=== PATIENT | female | born 1985 | race Caucasian/White ===

== ENCOUNTER 2020-06-05 13:54 | Inpatient (IN) | payer BC, MEDICAID ==
[~2020-06-05] VITALS: Ht 157.5 cm; Wt 101.0 kg
[2020-06-05] MEDS ORDERED: BETAMETHASONE 6 MG/ML, 5ML IM SCH (15:00)
[2020-06-05] MEDS: LACTATED RINGERS 1,000 ML IV PRN (15:00)
[2020-06-05] MEDS: MAGNESIUM SULF. PMX 20GM/500ML 500 ML IV SCH (15:00)
[2020-06-05] MEDS ORDERED: PREN1TAB10 PO (15:08)
[2020-06-05] MEDS ORDERED: INDOMETHACIN 50 MG CAPSULE ONE (17:12)
[2020-06-05] MEDS ORDERED: INDOMETHACIN 50 MG CAPSULE PO STA (17:13)
[2020-06-05] MEDS ORDERED: MAGNESIUM SULF. PMX 20GM/500ML 500 ML IV ONE ×2 (17:13→23:14)
[2020-06-05 17:26] LABS: ALBUMIN 2.7 g/dL (3.4-5.0); ANION GAP 10 mmol/L (5-15); CALCIUM 7.7 mg/dL (8.5-10.1); CHLORIDE 108 mmol/L (98-107)
[2020-06-05 17:30] LABS: ALANINE AMINOTRANSFERASE 16 U/L (12-78); ALKALINE PHOSPHATASE 108 U/L (45-117); BILIRUBIN,TOTAL 0.3 mg/dL (0.2-1.0); CREATININE 0.47 mg/dL (0.55-1.02); TOTAL PROTEIN 6.9 g/dL (6.4-8.2)
[2020-06-05] MEDS ORDERED: DOCUSATE 50 MG/5 ML, 10ML UDC PO PRN (17:30)
[2020-06-05 17:34] LABS: MEAN CORPUSCULAR HEMOGLOBIN 28.2 pg (27.0-34.8); MEAN CORPUSCULAR HGB CONC 32.7 g/dL (32.4-35.8); MEAN PLATELET VOLUME 10.3 fL (7.4-10.4); PLATELET COUNT 291 x10^3/uL (130-400); RED BLOOD COUNT 4.15 x10^6/uL (3.82-5.3); RED CELL DISTRIBUTION WIDTH 13.6 % (9.6-15.2)
[2020-06-05 17:43] LABS: MD YES
[2020-06-05] MEDS: AMPICILLIN 2 GM in SODIUM CHLORIDE 0.9% 100 ML IV SCH ×2 (17:52→23:13)
[2020-06-05 18:11] LABS: <PLATELET ESTIMATE> ADEQUATE; <PLT MORPHOLOGY> NORMAL PLT MORPH; <RBC MORPHOLOGY> NORMAL; BAND#(MANUAL) 0.39 x10^3/uL; BANDS%(MANUAL) 2 % (0-7); LYMPH#(MANUAL) 2.15 x10^3/uL (1-3.4); LYMPHS% (MANUAL) 11 % (22-44); MONOS% (MANUAL) 1 % (2-9); SEG#(MANUAL) 16.77 x10^3/uL (1.8-6.8); SEGS% (MANUAL) 86 % (42-75)
[2020-06-05] MEDS ORDERED: INSULIN LISPRO 100 UNITS/ML, PEN SQ-INSULIN ONE (18:54)
[2020-06-05] MEDS: INSULIN LISPRO 100 UNITS/ML, PEN SQ-INSULIN SCH (21:19)
[2020-06-05] MEDS ORDERED: ZOLPIDEM 5MG TABLET ONE (23:09)
[2020-06-05] MEDS: ZOLPIDEM 5MG TABLET PO PRN (23:12)
[2020-06-05] MEDS ORDERED: INSULIN NPH HUMAN 100 UNIT/ML, 3ML VIAL SQ-INSULIN ONE (23:30)
[2020-06-06] MEDS: MAGNESIUM SULF. PMX 20GM/500ML 500 ML IV SCH (00:30)
[2020-06-06] MEDS: LACTATED RINGERS 1,000 ML IV PRN (00:57)
[2020-06-06] MEDS ORDERED: CALCIUM CARBONATE 500 MG TAB.CHEW ONE ×2 (01:45→21:59)
[2020-06-06] MEDS: INSULIN LISPRO 100 UNITS/ML, PEN SQ-INSULIN SCH ×3 (07:00→16:00)
[2020-06-06] MEDS ORDERED: PRENATAL VIT/IRON/FA 1 EACH TABLET ONE (08:05)
[2020-06-06] MEDS ORDERED: metFORMIN 500 MG TABLET ONE ×2 (08:06→17:25)
[2020-06-06] MEDS: PRENATAL VIT/IRON/FA 1 EACH TABLET PO SCH (08:08)
[2020-06-06] MEDS: metFORMIN 500 MG TABLET PO SCH ×2 (08:08→17:27)
[2020-06-06] MEDS ORDERED: ACETAMINOPHEN 325 MG TABLET ONE (10:27)
[2020-06-06] MEDS ORDERED: ACETAMINOPHEN 325 MG TABLET PO ONE (10:30)
[2020-06-06] MEDS ORDERED: INDOMETHACIN 25 MG CAPSULE PO ONE (10:30)
[2020-06-06] MEDS ORDERED: BETAMETHASONE 6 MG/ML, 5ML IM ONE (11:03)
[2020-06-06 11:12] VITALS: BP 103/56
[2020-06-06 19:22] VITALS: BP 112/97
[2020-06-06] MEDS ORDERED: ZOLPIDEM 5MG TABLET ONE ×2 (21:59→22:04)
[2020-06-06] MEDS: CALCIUM CARBONATE 500 MG TAB.CHEW PO PRN (22:03)
[2020-06-06] MEDS: ZOLPIDEM 5MG TABLET PO PRN (22:03)
[2020-06-07] MEDS ORDERED: CALCIUM CARBONATE 500 MG TAB.CHEW ONE (06:34)
[2020-06-07] MEDS: CALCIUM CARBONATE 500 MG TAB.CHEW PO PRN (06:37)
[2020-06-07] MEDS: INSULIN LISPRO 100 UNITS/ML, PEN SQ-INSULIN SCH ×3 (07:00→16:00)
[2020-06-07] MEDS ORDERED: metFORMIN 500 MG TABLET ONE ×2 (07:30→17:49)
[2020-06-07] MEDS ORDERED: INDOMETHACIN 25 MG CAPSULE PO ONE (07:30)
[2020-06-07] MEDS ORDERED: PRENATAL VIT/IRON/FA 1 EACH TABLET ONE (07:30)
[2020-06-07] MEDS: metFORMIN 500 MG TABLET PO SCH ×2 (07:36→17:50)
[2020-06-07] MEDS: PRENATAL VIT/IRON/FA 1 EACH TABLET PO SCH (07:36)
[2020-06-07] MEDS ORDERED: MAGNESIUM SULFATE PMX 4GM/100M 100 ML ONE (08:07)
[2020-06-07] MEDS ORDERED: OXYcodone/APAP 5/325MG TABLET ONE (08:29)
[2020-06-07] MEDS ORDERED: FAMOTIDINE 20 MG TABLET ONE ×2 (08:30→22:40)
[2020-06-07] MEDS ORDERED: OXYcodone/APAP 5/325MG TABLET PO ONE (08:30)
[2020-06-07] MEDS ORDERED: MAGNESIUM SULF. PMX 20GM/500ML 500 ML IV SCH (08:30)
[2020-06-07] MEDS ORDERED: MAGNESIUM SULFATE PMX 4GM/100M 100 ML IVPB ONE (08:30)
[2020-06-07] MEDS: FAMOTIDINE 20 MG TABLET PO SCH ×2 (08:32→23:07)
[2020-06-07] MEDS: PROMETHAZINE 25MG TABLET PO PRN (08:55)
[2020-06-07] MEDS ORDERED: ONDANSETRON 2MG/ML, 2ML IVPush PRN (09:00)
[2020-06-07] MEDS ORDERED: PROMETHAZINE 25 MG/ML, 1ML IM ONE (09:00)
[2020-06-07] MEDS ORDERED: MAGNESIUM SULF. PMX 20GM/500ML 500 ML IV ONE (09:00)
[2020-06-07] MEDS: LACTATED RINGERS 1,000 ML IV PRN (11:30)
[2020-06-07] MEDS ORDERED: AMPICILLIN 2 GM in SODIUM CHLORIDE 0.9% 100 ML IV SCH (15:30)
[2020-06-07] MEDS ORDERED: AZITHROMYCIN 500 MG in SODIUM CHLORIDE 0.9% 250 ML IV SCH (15:30)
[2020-06-07 15:59] LABS: FERNING TEST FERNING NOT PRESENT (NEGATIVE)
[2020-06-07 20:16] VITALS: BP 132/68
[2020-06-07] MEDS ORDERED: ZOLPIDEM 5MG TABLET ONE ×2 (22:40→22:42)
[2020-06-07] MEDS: ZOLPIDEM 5MG TABLET PO PRN (23:06)
[2020-06-07] MEDS: SODIUM CHLORIDE FLUSH 3ML SYRINGE IVF SCH (23:07)
[2020-06-08] MEDS: INSULIN LISPRO 100 UNITS/ML, PEN SQ-INSULIN SCH ×3 (07:00→16:00)
[2020-06-08] MEDS ORDERED: metFORMIN 500 MG TABLET ONE ×2 (08:35→17:58)
[2020-06-08] MEDS ORDERED: PRENATAL VIT/IRON/FA 1 EACH TABLET ONE (08:35)
[2020-06-08] MEDS ORDERED: FAMOTIDINE 20 MG TABLET ONE ×2 (08:35→22:48)
[2020-06-08] MEDS: PRENATAL VIT/IRON/FA 1 EACH TABLET PO SCH (08:37)
[2020-06-08] MEDS: metFORMIN 500 MG TABLET PO SCH ×2 (08:37→17:59)
[2020-06-08] MEDS: FAMOTIDINE 20 MG TABLET PO SCH ×2 (08:37→23:16)
[2020-06-08] MEDS: PROMETHAZINE 25MG TABLET PO PRN ×2 (09:57→16:10)
[2020-06-08] MEDS: SODIUM CHLORIDE FLUSH 3ML SYRINGE IVF SCH ×2 (09:58→21:00)
[2020-06-08] MEDS ORDERED: MAGNESIUM SULFATE PMX 4GM/100M 100 ML ONE (15:49)
[2020-06-08] MEDS ORDERED: MAGNESIUM SULF. PMX 20GM/500ML 500 ML IV ONE (15:49)
[2020-06-08] MEDS ORDERED: MAGNESIUM SULF. PMX 20GM/500ML 500 ML IV SCH (16:00)
[2020-06-08] MEDS ORDERED: MAGNESIUM SULFATE PMX 4GM/100M 100 ML IVPB ONE (16:00)
[2020-06-08] MEDS: LACTATED RINGERS 1,000 ML IV SCH (18:00)
[2020-06-08 21:16] VITALS: BP 125/61
[2020-06-08] MEDS ORDERED: ZOLPIDEM 5MG TABLET ONE (22:48)
[2020-06-08] MEDS: MAGNESIUM OXIDE 400 MG TABLET PO SCH (23:16)
[2020-06-08] MEDS: ZOLPIDEM 5MG TABLET PO PRN (23:17)
[2020-06-09] MEDS ORDERED: OXYcodone/APAP 5/325MG TABLET ONE ×2 (00:42→23:17)
[2020-06-09] MEDS: OXYcodone/APAP 5/325MG TABLET PO PRN ×2 (00:44→23:19)
[2020-06-09] MEDS: LACTATED RINGERS 1,000 ML IV SCH ×2 (04:00→14:00)
[2020-06-09] MEDS ORDERED: MAGNESIUM OXIDE 400 MG TABLET ONE ×3 (06:20→23:07)
[2020-06-09] MEDS: MAGNESIUM OXIDE 400 MG TABLET PO SCH ×3 (06:23→23:19)
[2020-06-09] MEDS: INSULIN LISPRO 100 UNITS/ML, PEN SQ-INSULIN SCH ×3 (06:26→16:00)
[2020-06-09] MEDS ORDERED: metFORMIN 500 MG TABLET ONE ×2 (08:22→19:31)
[2020-06-09] MEDS ORDERED: FAMOTIDINE 20 MG TABLET ONE (08:24)
[2020-06-09] MEDS ORDERED: PRENATAL VIT/IRON/FA 1 EACH TABLET ONE (08:25)
[2020-06-09] MEDS: PRENATAL VIT/IRON/FA 1 EACH TABLET PO SCH (08:26)
[2020-06-09] MEDS: FAMOTIDINE 20 MG TABLET PO SCH ×2 (08:26→20:46)
[2020-06-09] MEDS: metFORMIN 500 MG TABLET PO SCH ×2 (08:26→19:33)
[2020-06-09 09:00] VITALS: BP 113/60
[2020-06-09] MEDS: SODIUM CHLORIDE FLUSH 3ML SYRINGE IVF SCH ×2 (09:30→19:33)
[2020-06-09] MEDS ORDERED: INDOMETHACIN 25 MG CAPSULE PO ONE (10:30)
[2020-06-09] MEDS ORDERED: ZOLPIDEM 5MG TABLET ONE (20:37)
[2020-06-09] MEDS: ZOLPIDEM 5MG TABLET PO PRN (23:19)
[2020-06-10] MEDS: LACTATED RINGERS 1,000 ML IV SCH
[2020-06-10] MEDS ORDERED: ONDANSETRON ODT 4 MG ONE (00:42)
[2020-06-10] MEDS ORDERED: ONDANSETRON ODT 4 MG PO ONE (01:00)
[2020-06-10] MEDS ORDERED: ONDANSETRON 4 MG TABLET PO ONE (01:00)
[2020-06-10] MEDS ORDERED: metFORMIN 500 MG TABLET ONE ×2 (07:50→18:03)
[2020-06-10] MEDS ORDERED: MAGNESIUM OXIDE 400 MG TABLET ONE ×3 (07:50→23:11)
[2020-06-10] MEDS: FAMOTIDINE 20 MG TABLET PO SCH ×2 (07:57→22:08)
[2020-06-10] MEDS: metFORMIN 500 MG TABLET PO SCH ×2 (07:57→18:00)
[2020-06-10] MEDS: MAGNESIUM OXIDE 400 MG TABLET PO SCH ×3 (07:58→23:12)
[2020-06-10] MEDS: SODIUM CHLORIDE FLUSH 3ML SYRINGE IVF SCH ×2 (08:07→17:00)
[2020-06-10] MEDS ORDERED: PRENATAL VIT/IRON/FA 1 EACH TABLET ONE (08:12)
[2020-06-10] MEDS: PRENATAL VIT/IRON/FA 1 EACH TABLET PO SCH (08:13)
[2020-06-10] MEDS: PROMETHAZINE 25MG TABLET PO PRN ×2 (14:02→18:57)
[2020-06-10] MEDS ORDERED: D5%-LACTATED RINGERS 1,000 ML IV SCH ×2 (17:30)
[2020-06-10] MEDS ORDERED: OXYcodone/APAP 5/325MG TABLET ONE (18:55)
[2020-06-10] MEDS: OXYcodone/APAP 5/325MG TABLET PO PRN (18:56)
[2020-06-10] MEDS ORDERED: ZOLPIDEM 5MG TABLET ONE (22:06)
[2020-06-10] MEDS: ZOLPIDEM 5MG TABLET PO PRN (22:09)
[2020-06-11] MEDS ORDERED: MAGNESIUM OXIDE 400 MG TABLET ONE ×3 (07:56→21:56)
[2020-06-11] MEDS ORDERED: metFORMIN 500 MG TABLET ONE ×2 (07:56→17:20)
[2020-06-11] MEDS ORDERED: FAMOTIDINE 20 MG TABLET ONE (07:56)
[2020-06-11] MEDS ORDERED: PRENATAL VIT/IRON/FA 1 EACH TABLET ONE (07:59)
[2020-06-11] MEDS: metFORMIN 500 MG TABLET PO SCH ×2 (09:10→17:22)
[2020-06-11] MEDS: FAMOTIDINE 20 MG TABLET PO SCH (09:12)
[2020-06-11] MEDS: PRENATAL VIT/IRON/FA 1 EACH TABLET PO SCH (09:12)
[2020-06-11] MEDS: MAGNESIUM OXIDE 400 MG TABLET PO SCH ×3 (09:12→22:08)
[2020-06-11] MEDS: PROMETHAZINE 25MG TABLET PO PRN ×2 (09:36→18:10)
[2020-06-11] MEDS ORDERED: OXYcodone/APAP 5/325MG TABLET ONE ×2 (14:30→17:55)
[2020-06-11] MEDS: OXYcodone/APAP 5/325MG TABLET PO PRN ×2 (14:33→17:59)
[2020-06-11 18:29] LABS: MICROSCOPIC INDICATED
[2020-06-11 20:00] VITALS: BP 127/79
[2020-06-11] MEDS ORDERED: ZOLPIDEM 5MG TABLET ONE (21:56)
[2020-06-11] MEDS: ZOLPIDEM 5MG TABLET PO PRN (22:08)
[2020-06-12] MEDS ORDERED: OXYcodone/APAP 5/325MG TABLET ONE (00:10)
[2020-06-12] MEDS: PROMETHAZINE 25MG TABLET PO PRN ×2 (00:13→12:45)
[2020-06-12] MEDS: OXYcodone/APAP 5/325MG TABLET PO PRN (00:13)
[2020-06-12 09:20] VITALS: BP 114/70
[2020-06-12] MEDS ORDERED: metFORMIN 500 MG TABLET ONE ×2 (09:33→21:13)
[2020-06-12] MEDS ORDERED: MAGNESIUM OXIDE 400 MG TABLET ONE ×3 (09:33→22:09)
[2020-06-12] MEDS ORDERED: PRENATAL VIT/IRON/FA 1 EACH TABLET ONE (09:33)
[2020-06-12] MEDS: metFORMIN 500 MG TABLET PO SCH ×2 (09:39→21:16)
[2020-06-12] MEDS: MAGNESIUM OXIDE 400 MG TABLET PO SCH ×3 (12:45→22:14)
[2020-06-12] MEDS ORDERED: FAMOTIDINE 20 MG TABLET ONE ×2 (15:43→22:09)
[2020-06-12] MEDS: FAMOTIDINE 20 MG TABLET PO SCH ×2 (15:45→22:14)
[2020-06-12] MEDS ORDERED: DOCUSATE 100 MG CAPSULE ONE (15:46)
[2020-06-12] MEDS ORDERED: DOCUSATE 100 MG CAPSULE PO PRN (16:00)
[2020-06-12] MEDS ORDERED: CALCIUM CARBONATE 500 MG TAB.CHEW ONE (16:30)
[2020-06-12] MEDS: CALCIUM CARBONATE 500 MG TAB.CHEW PO PRN (16:31)
[2020-06-12] MEDS: PRENATAL VIT/IRON/FA 1 EACH TABLET PO SCH (17:31)
[2020-06-12] MEDS ORDERED: ZOLPIDEM 5MG TABLET ONE (22:18)
[2020-06-12] MEDS: ZOLPIDEM 5MG TABLET PO PRN (22:20)
[2020-06-13] MEDS ORDERED: OXYcodone/APAP 5/325MG TABLET ONE (00:10)
[2020-06-13] MEDS: OXYcodone/APAP 5/325MG TABLET PO PRN (00:12)
[2020-06-13 08:38] VITALS: BP 117/65
[2020-06-13] MEDS ORDERED: ACETAMINOPHEN 325 MG TABLET PO PRN (09:00)
[2020-06-13] MEDS ORDERED: PRENATAL VIT/IRON/FA 1 EACH TABLET ONE (09:04)
[2020-06-13] MEDS ORDERED: DOCUSATE 100 MG CAPSULE ONE (09:04)
[2020-06-13] MEDS ORDERED: metFORMIN 500 MG TABLET ONE ×3 (09:05→17:04)
[2020-06-13] MEDS ORDERED: FAMOTIDINE 20 MG TABLET ONE ×2 (09:05→21:00)
[2020-06-13] MEDS: PRENATAL VIT/IRON/FA 1 EACH TABLET PO SCH (09:08)
[2020-06-13] MEDS: metFORMIN 500 MG TABLET PO SCH ×2 (09:08→17:06)
[2020-06-13] MEDS: FAMOTIDINE 20 MG TABLET PO SCH ×2 (09:08→21:09)
[2020-06-13] MEDS: MAGNESIUM OXIDE 400 MG TABLET PO SCH ×3 (09:10→22:49)
[2020-06-13] MEDS ORDERED: MAGNESIUM OXIDE 400 MG TABLET ONE ×3 (09:10→22:27)
[2020-06-13 13:48] LABS: MICROSCOPIC INDICATED
[2020-06-13] MEDS ORDERED: ZOLPIDEM 5MG TABLET ONE (22:27)
[2020-06-13] MEDS: ZOLPIDEM 5MG TABLET PO PRN (22:50)
[2020-06-14 08:47] VITALS: BP 132/58
== END 2020-06-14 09:00 | disposition home or self-care (01) | DRG 832 ==
LOC: LDIP 14:42
PROVIDERS: ADMIT Obstetrics & Gynecology Maternal & Fetal Medicine; ATTEND Obstetrics & Gynecology Maternal & Fetal Medicine
DX: O99.513 Diseases of the respiratory system complicating pregnancy, third trimester (principal); D68.59 Other primary thrombophilia; N13.30 Unspecified hydronephrosis; J45.20 Mild intermittent asthma, uncomplicated; O99.113 Other diseases of the blood and blood-forming organs and certain disorders involving the immune mechanism complicating pregnancy, third trimester; E66.9 Obesity, unspecified; O99.213 Obesity complicating pregnancy, third trimester; O24.415 Gestational diabetes mellitus in pregnancy, controlled by oral hypoglycemic drugs; O16.3 Unspecified maternal hypertension, third trimester; G89.29 Other chronic pain; O60.03 Preterm labor without delivery, third trimester; Z87.891 Personal history of nicotine dependence; Z3A.32 32 weeks gestation of pregnancy
CPT/HCPCS: 36415; J7121; Q0169; 76770; 76815; 80053; 81001; 82962; 83036; 83735; 84112; 85025; 86592; 86850; 86900; 87086; 89060; G0378; J0290; J0456; J0702; J1815; Q0162; J3475; J7050; J7120; Q0114